=== PATIENT | female | born 1980 | race Caucasian/White ===

== ENCOUNTER 2018-02-17 11:16 | Emergency (ER) | payer MEDICAID, SELFPAY ==
[2018-02-17 11:17] VITALS: BP 125/82; PULSE 92; RESP 16; TEMP 36.4; O2SAT 100; BMI 38.0
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
== END 2018-02-17 12:43 | disposition home or self-care (01) ==
PROVIDERS: Emergency Provider Emergency Medicine
DX: S16.1XXA Strain of muscle, fascia and tendon at neck level, initial encounter (principal); Z72.0 Tobacco use; V43.62XA Car passenger injured in collision with other type car in traffic accident, initial encounter; Y93.I9 Activity, other involving external motion; Y92.410 Unspecified street and highway as the place of occurrence of the external cause; Y99.8 Other external cause status
CPT/HCPCS: 99282

== ENCOUNTER 2018-06-22 08:47 | Emergency (ER) | payer MEDICAID, SELFPAY ==
[2018-06-22 08:49] VITALS: BP 160/76; PULSE 65; RESP 14; TEMP 36.3; O2SAT 100; BMI 36.6
--- NOTE | 2018-06-22 09:04 | US_ITS ---
STUDY: ABDOMINAL ULTRASOUND - RIGHT UPPER QUADRANT REASON FOR VISIT: Female, 38 years old. Abdominal pain. TECHNIQUE: Ultrasound evaluation of the right upper quadrant was performed with real-time and static leo-scale imaging. TECHNICAL QUALITY: Adequate. COMPARISON: None. FINDINGS: Liver: The liver measures 17.0 cm. There is normal echogenicity of the liver. The bile ducts are within normal limits. There is hepatic color flow. The direction of portal flow is hepatopetal. There is no demonstrated mass lesion. Gallbladder: Normal distended gallbladder. The gallbladder wall measures 3.0 mm. There is a negative sonographic Khan's sign. There is no pericholecystic fluid. There are no gallstones. Common Bile Duct (C.B.D.): The common bile duct measures 3.0 mm. Pancreas: Normal size of the head, body and tail of the pancreas. There is normal echogenicity of the pancreas. There is no demonstrated pancreatic mass or cyst. Right Kidney: Normal size of the right kidney. The right kidney measures 10.7 cm x 4.9 cm x 4.5 cm. Normal renal cortex. The right cortex measures 1.0 cm. There is no demonstrated renal mass or cyst. There is no right hydronephrosis. US/Gallbladder IMPRESSION: Normal right upper quadrant ultrasound examination. Electronically Signed: Pop Mcknight MD at 9:55 EDT Tel [phone], Service support ,
--- NOTE | 2018-06-22 09:05 | ED.VISSUMM ---
- ER Visit Summary Date of Service: 06/22/18 Chief Complaint: Abdominal pain and headache History of Present Illness: The patient is a 38 F with no primary care physician. She reports that she has a headache that began on March 17. She reports that it is an intermittent pain. States that it began again at 2:00 this morning and is gradually gotten worse. It is a throbbing that is diffuse. It is 10 out of 10 in severity. She taken Excedrin without relief. She has been nauseated and vomited multiple times. No blood or emesis. She does complain of blurred vision. No recent injury to her head. Patient also reports that she has abdominal pain that began June 17. She reports that she was at another hospital and had blood work, CT, and urinalysis obtained. She was placed on Phenergan and Bentyl. She reports that is not controlling her pain today. States the abdominal pain is intermittent as well. It began again at 2:00 this morning. Is an aching epigastric and right upper quadrant pain. She reports that it is transient relieved by vomiting. However, it returns proximal 10 minutes later. Is 6 out of 10 severity now and 10 out of 10 at worst. She has had chills, but no fever. No diarrhea. No dysuria or frequency. She is status post hysterectomy. She does report a history of fatty food intolerance. However, she last ate approximately 9 hours prior to the onset of pain this morning. Physical Examination: Vitals: Stable. Afebrile. General: Well-nourished and well-developed. Head: Normocephalic atraumatic. Neck: Supple, no lymphadenopathy. No JVD. Nontender. Cardiovascular: Regular rate and rhythm. No murmurs. Respiratory: No respiratory distress. Clear to auscultation bilaterally. Abdominal: Soft, moderate epigastric and mild right upper quadrant tenderness to palpation, nondistended, normal bowel sounds. No guarding, rebound, or peritoneal signs. Back: Nontender. Extremities: Nontender, no edema. Skin: Normal color, no rash. Neurologic: Alert and oriented ?3. Cranial nerves II through XII are intact. Normal strength and sensation. Psych: Normal affect. Test Results: CBC is remarkable for a white count of 12.3 with segmented neutrophils of 90 and 8 lymphocytes of 8. Hemoglobin is 16.7. Chem-7 is more for glucose 127. LFTs marked for an AST of 11. Lipase is normal. Right upper quadrant ultrasound is normal. Common bile duct is 3.0 mm. Wall is 3.0 mm. No Khan sign. No pericholecystic fluid. No gallstones. We did obtain the workup that she had on the . At that point she had a CT the abdomen and pelvis that shows no acute disease, but she did have a left lower lobe nodule. UA was negative. Emergency Department Course and Treatment: Patient had an IV placed. She was given a liter normal saline. She was given Toradol, Benadryl, and Reglan IV. Treatment Plan: Patient will be discharged with Zofran. Instructed follow-up her primary care physician 1-2 days not improving. Return to the emergency department for any worsening symptoms. Disposition: To home in improved and stable condition. Impression: 1. Abdominal pain, uncertain cause. 2. Cephalgia. This note was generated with [email or web address] dictation software. It may contain incorrect words, spelling, and punctuation that were not noted in review of the chart prior to signing ED Disposition - Plan for ED Patient: Chief Complaint: Headache Instructions: ED Abdominal Pain Unkn Cause Prescriptions: Ondansetron [Zofran Odt] 4 mg PO Q8H PRN PRN #10 tablet PRN Reason: Nausea Referrals: Kaylie Boyd [NON-STAFF] - 1-2 Days if not improving
[2018-06-22] MEDS: Ketorolac 30 MG/ML Syringe IV (09:17)
[2018-06-22] MEDS: 0.9% Normal Saline 1,000 ML 1000 ML IV (09:17)
[2018-06-22] MEDS: DiphenhydrAMINE 50 MG/ML Syringe IV (09:17)
[2018-06-22] MEDS: Metoclopramide 10 MG/2 ML Vial IV (09:20)
[2018-06-22 09:24] LABS: Absolute Lymphocyte Count 0.95 X10^3/ul (0.83-4.51); Basophil# 0.02 X10^3/uL; Basophil% 0.2 % (0-1); Hematocrit 46.3 % (37-47); Hemoglobin 16.7 g/dl (12.0-15.0); Lymphocyte # 0.95 X10^3/ul (4.0); Lymphocyte % 7.8 % (19-41); Mean Corp Hgb Conc 36.1 g/gl (32-36); Mean Corpuscular Hgb 32.7 pg (27.0-32.0); Mean Corpuscular Volume 90.6 fL (81-99); Mean Platelet Vol. 10.7 fl (6.2-12.0); Monocyte# 0.24 X10^3/uL; Neutrophil # 10.98 X10^3/uL (2.7-7.7); Neutrophil % 89.5 % (47-70); Platelet Count 331 K/mm3 (150-450); RBC Distribution Width CV 13.2 % (11.6-14.6); Red Blood Count 5.11 M/mm3 (4.2-5.4); White Blood Count 12.3 K/mm3 (4.4-11.0)
[2018-06-22 09:27] LABS: POSITIVE COUNT NO; POSITIVE DIFFERENTIAL NO; POSITIVE MORPHOLOGY NO
[2018-06-22 09:38] LABS: AST(SGOT) 11 U/L (15-37); Alanine Aminotransfer ALT/SGPT 30 U/L (13-56); Albumin, Serum 3.9 g/dL (3.2-5.0); Alkaline Phosphatase 92 U/L (45-117); Anion Gap 10 (5-15); BUN 18 mg/dL (7-18); BUN/Creat Ratio 18.3 RATIO (10-20); Bilirubin, Direct 0.14 mg/dL (0.00-0.30); Chloride 100 mmol/L (98-107); Creatinine, Serum 0.98 mg/dL (0.55-1.02); EST Glomerular Filtration Rate 67 mL/min (>60); Est Glom Filt Rate - Afr Amer 81 mL/min (>60); Estimated Creatinine Clearance 65.89 ml/min; Glucose 127 mg/dL (74-106); Lipase 142 U/L (73-393); Potassium 3.5 mmol/L (3.5-5.1); Protein, Total 7.9 g/dL (6.4-8.2); Sodium Level 136 mmol/L (136-145)
[2018-06-22] MEDS: Morphine 4 MG/ML Syringe IV (10:56)
[2018-06-22 10:58] VITALS: BP 172/92; PULSE 60; RESP 14; O2SAT 100
== END 2018-06-22 11:09 | disposition home or self-care (01) ==
PROVIDERS: Emergency Provider Emergency Medicine
DX: R10.13 Epigastric pain (principal); R10.11 Right upper quadrant pain; R51 Headache; Z72.0 Tobacco use
CPT/HCPCS: 76705; 80048; 80076; 83690; 85025; 96361; 96374; 96375; 99283; J7030; A4216

== ENCOUNTER 2025-07-24 13:17 | Emergency (ER) | payer MEDICAID, SELFPAY ==
[2025-07-24 13:17] VITALS: BP 146/82; PULSE 101; RESP 16; TEMP 37.1; O2SAT 99; BMI 39.0
--- NOTE | 2025-07-24 13:34 | EX.ED.DYSGE1 ---
HPI History of Present Illness Chief Complaint: Rash Informant: patient Narrative Narrative: 45-year-old female presenting to the emergency room out of concern for tick bite. Patient states about 2 weeks ago she removed a tick from her anterior midline neck. She states that she believes she removed all the tick. She has noticed that she has developed generalized achiness fatigue and some neck discomfort particularly with swallowing and turning her head. She noted a large rash on her anterior neck today in the area where the tick was and was advised to come to emergency. PFSH PFS Home Medications Medication Instructions Recorded Last Taken Type Lipozene 1 tab PO DAILY 06/22/18 Unknown History ondansetron 4 mg disintegrating 4 mg PO Q8H PRN PRN Nausea #10 tabs 06/22/18 Unknown Rx tablet doxycycline monohydrate 100 mg 100 mg PO BID #20 CAPSULES 07/24/25 Unknown Rx capsule Allergy/AdvReac Type Severity Reaction Status Date / Time No Known Allergies Allergy Verified 07/24/25 13:18 Social History Smoking Status: Current every day smoker ROS ROS ED Constitutional Constitutional ED: Reports sweats; Denies chills, fever(s) or weight loss Eyes Eyes: Denies change in vision or diplopia ENT ENT ED: Denies ear pain, rhinorrhea or sore throat Cardiovascular Cardiovascular: Denies chest pain, orthopnea, palpitations or racing heartbeat Respiratory/Chest Respiratory/Chest: Denies cough, dyspnea or orthopnea Gastrointestinal Gastrointestinal: Denies abdominal pain, diarrhea, nausea or vomiting Genitourinary Genitourinary ED: Denies dysuria, hematuria or urinary frequency Musculoskeletal Musculoskeletal: Reports myalgias and neck pain; Denies arthralgias Integumentary Reports rash; Denies abscess Neurologic Neurologic: Denies headache(s), paresthesias or weakness Psychiatric Psychiatric: Denies anxiety, depression, suicidal ideation or suicidal thoughts Endocrine Endocrinology: Denies polydipsia, polyphagia or polyuria Allergic/Immunologic Allergic/Immunologic ED: Denies mouth swelling, tongue swelling or urticaria EXAM Physical Exam Const Vital Signs: 07/24/25 13:17 Temperature 98.8 F Temperature Source Oral Pulse Rate 101 H Respiratory Rate 16 Blood Pressure 146/82 H Blood Pressure Mean 103 Pulse Ox 99 Oxygen Delivery Method Room Air Positive well nourished and well developed General Appearance ED: well developed HEENT Reports normocephalic, head/scalp atraumatic and moist mucous membranes Eyes PERRL and EOMs intact bilaterally Neck no lymphadenopathy, supple and no JVD Neck Narrative: I would not characterize the neck was meningitic in nature. Resp normal respiratory effort and clear to auscultation bilaterally Cardio regular rate, regular rhythm and no murmurs GI normal to inspection, nondistended, normoactive bowel sounds and non-tender Palpation: soft Back/Spine no CVA tenderness and normal ROM Extremity normal to inspection General Extremety ED: Negative for edema General Extremity: Negative for edema Neuro oriented x3 and CN's II-XII intact bilaterally Sensorium / Orientation: alert Motor Exam: strength 5/5 throughout Psych mental status grossly normal Mood & Affect: Negative for depressed or tearful Skin no wounds Skin Narrative: There is a circular erythematous rash over the anterior neck measuring approximately 15 cm wide by 10 cm in length. It is not classic bull's-eye in appearance. I do not see any retained tick. MDM MDM MDM Narrative Medical decision making narrative: Differential diagnosis includes Lyme disease cellulitis other tickborne illnesses such as [place] spotted fever. Meningitis We will draw a Lyme screen and placed the patient on doxycycline. Asked that she follow-up with primary care return if worsening or concerns. Patient is comfortable with this plan History & Record Review Discussion w/independent historian: Patient Discharge Plan Triage Chief Complaint: Rash ED Provider: Jose Coates Dx/Rx/DC Orders Clinical Impression: Rash, Tick bite of neck Instructions: ED Tick Bite, Antibiotic Treatment Prescriptions: New doxycycline monohydrate 100 mg capsule 100 mg PO BID Qty: 20 0RF No Action Lipozene 1 tab PO DAILY ondansetron 4 MG tablet 4 mg PO Q8H PRN PRN (Reason: Nausea) Qty: 10 0RF Primary Care Provider: Care Physician,No Primary Referrals: Care Physician,No Primary [Primary Care Provider, Medical] Activity Restrictions/Additional Instructions: I would encourage you to follow-up with primary care in 1 week especially if there is continued symptoms. We have tested you for Lyme today and that test does not come back while you are here in the emergency department. This will most likely take several days to result. Please return if worsening or concerns Print Language: Qatari Disposition Disposition: Home, Self Care
--- OUTSIDE RECORDS SUMMARY | 2025-07-24 13:45 | XMS RPT_ITS | CCD ---
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 effect 20 Performed By: #### C BC, ADIFF, ANEU, A1C, BILAD, TSH, LIPID, CMP, GFR #### [place] [id number] Chloride [Moles/Vol] 110 mmol/L Normal 98-110 [facility] ([place]) Comment on above: Performed By: #### C BC, ADIFF, ANEU, A1C, BILAD, TSH, LIPID, CMP, GFR #### [place] [id number] CO2 [Moles/Vol] 25 mmol/L Normal 22-32 [facility] ([place]) Comment on above: Performed By: #### C BC, ADIFF, ANEU, A1C, BILAD, TSH, LIPID, CMP, GFR #### [place] [address] Creatinine [Mass/Vol] 0.60 mg/dL Normal 0.50-1.20 [facility] ([place]) Comment on above: Performed By: #### C BC, ADIFF, ANEU, A1C, BILAD, TSH, LIPID, CMP, GFR #### [place] [address] Electrolyte Balance 6.0 mEq/L Normal 4.0-15.0 [facility] ([place]) Comment on above: Performed By: #### C BC, ADIFF, ANEU, A1C, BILAD, TSH, LIPID, CMP, GFR #### [place] [id number] Globulin 3.1 G/dL Normal 1.5-3.8 [facility] ([place]) Comment on above: Performed By: #### C BC, ADIFF, ANEU, A1C, BILAD, TSH, LIPID, CMP, GFR #### [place] [address] Glucose [Mass/Vol] 89 mg/dL Normal 70-110 [facility] [place] Comment on above: Performed By: #### C BC, ADIFF, ANEU, A1C, BILAD, TSH, LIPID, CMP, GFR #### [address] [address] Potassium [Moles/Vol] 4.2 mmol/L Normal 3.5-5.0 [facility] ([place]) Comment on above: Performed By: #### C BC, ADIFF, ANEU, A1C, BILAD, TSH, LIPID, CMP, GFR #### [address] [address] Sodium [Moles/Vol] 141 mmol/L Normal 136-145 [facility] [place] Comment on above: Performed By: #### C BC, ADIFF, ANEU, A1C, BILAD, TSH, LIPID, CMP, GFR #### [address] [address] Total Protein 6.7 G/dL Normal 5.7-8.2 [facility] ([place]) Comment on above: Result Comment: No te - New Reference Range in effect 20 Performed By: #### C BC, ADIFF, ANEU, A1C, BILAD, TSH, LIPID, CMP, GFR #### [address] [address] Urea nitrogen [Mass/Vol] 16.0 mg/dL Normal 8.0-22.0 [facility] ([place]) Comment on above: Performed By: #### C BC, ADIFF, ANEU, A1C, BILAD, TSH, LIPID, CMP, GFR #### [address] [address] LIPIDon 02-07-2021 Cholesterol [Mass/Vol] 194 mg/dL Normal 50-199 [facility] ([place]) Comment on above: Result Comment: Chol esterol Reference Interval: Less than 200 Desirable 200-239 Borderline high risk 240 and above High risk Performed By: #### C BC, ADIFF, ANEU, A1C, BILAD, TSH, LIPID, CMP, GFR #### [address] [address] Cholesterol in HDL [Mass/Vol] 60 mg/dL High 40-59 [facility] ([place]) Comment on above: Performed By: #### C BC, ADIFF, ANEU, A1C, BILAD, TSH, LIPID, CMP, GFR #### [address] [address] Cholesterol in LDL [Mass/Vol] 99 mg/dL Normal 0-129 [facility] ([place]) Comment on above: Performed By: #### C BC, ADIFF, ANEU, A1C, BILAD, TSH, LIPID, CMP, GFR #### [place] [address] Triglyceride [Mass/Vol] 175 mg/dL High 3-149 [facility] ([place]) Comment on above: Performed By: #### C BC, ADIFF, ANEU, A1C, BILAD, TSH, LIPID, CMP, GFR #### [place] [address] TSHon 02-07-2021 TSH 5.529 mIU/mL High 0.550-4.780 [facility] ([place]) Comment on above: Result Comment: No te - New Reference Range in effect 20 Performed By: #### C BC, ADIFF, ANEU, A1C, BILAD, TSH, LIPID, CMP, GFR #### [address] [address] .GFRon 05-13-2020 GFR >60 Normal [facility] ([place]) Comment on above: Result Comment: GFR Population mean for , Non- Americans Ages 20-29 = 116 mL/min/1.73 sq.m. Ages 30-39 = 107 mL/min/1.73 sq.m. Ages 40-49 = 99 mL/min/1.73 sq.m. Ages 50-59 = 93 mL/min/1.73 sq.m. Ages 60-69 = 85 mL/min/1.73 sq.m. Ages 70+ = 75 mL/min/1.73 sq.m. Chronic Kidney Disease: Less than 60 mL/min/1.73 square meters End Stage Renal Disease: Less than 15 mL/min/1.73 square meters Performed By: #### C BC, ADIFF, ANEU, A1C, BILAD, TSH, LIPID, CMP, GFR #### [address] [address] GFR Non- >60 Normal [facility] ([place]) Comment on above: Result Comment: GFR Population mean for , Non- Americans Ages 20-29 = 116 mL/min/1.73 sq.m. Ages 30-39 = 107 mL/min/1.73 sq.m. Ages 40-49 = 99 mL/min/1.73 sq.m. Ages 50-59 = 93 mL/min/1.73 sq.m. Ages 60-69 = 85 mL/min/1.73 sq.m. Ages 70+ = 75 mL/min/1.73 sq.m. Chronic Kidney Disease: Less than 60 mL/min/1.73 square meters End Stage Renal Disease: Less than 15 mL/min/1.73 square meters Performed By: #### C BC, ADIFF, ANEU, A1C, BILAD, TSH, LIPID, CMP, GFR #### [address] [address] A1Con 05-13-2020 HbA1c (Bld) [Mass fraction] 4.9 % Normal 4.0-6.0 [facility] ([place]) Comment on above: Order Comment: pasquale ind Performed By: #### C BC, ADIFF, ANEU, A1C, BILAD, TSH, LIPID, CMP, GFR #### [address] [address] BILADon 05-13-2020 Bili Direct 0.1 mg/dL Normal 0.0-0.4 [facility] ([place]) Comment on above: Order Comment: pasquale ind Result Comment: Use of this assay is not recommended for patients undergoing treatment with eltrombopag due to the potential for falsely elevated results. Performed By: #### C BC, ADIFF, ANEU, A1C, BILAD, TSH, LIPID, CMP, GFR #### [address] [address] CMPon 05-13-2020 BUN/Creatinine Ratio 23.9 ratio High 10.0-22.0 [facility] ([place]) Comment on above: Order Comment: pasquale ind Performed By: #### C BC, ADIFF, ANEU, A1C, BILAD, TSH, LIPID, CMP, GFR #### [address] [address] Creatinine [Mass/Vol] 0.67 mg/dL Normal 0.50-1.20 [facility] ([place]) Comment on above: Order Comment: pasquale ind Performed By: #### C BC, ADIFF, ANEU, A1C, BILAD, TSH, LIPID, CMP, GFR #### [address] [address] Albumin Level 3.8 G/dL Normal 3.2-4.8 [facility] ([place]) Comment on above: Order Comment: pasquale ind Performed By: #### C BC, ADIFF, ANEU, A1C, BILAD, TSH, LIPID, CMP, GFR #### [address] [address] Albumin/Globulin [Mass ratio] 1.3 {ratio} Normal 0.9-1.6 [facility] ([place]) Comment on above: Order Comment: pasquale ind Performed By: #### C BC, ADIFF, ANEU, A1C, BILAD, TSH, LIPID, CMP, GFR #### [address] [address] ALP [Catalytic activity/Vol] 101 U/L Normal 38-126 [facility] ([place]) Comment on above: Order Comment: pasquale ind Performed By: #### C BC, ADIFF, ANEU, A1C, BILAD, TSH, LIPID, CMP, GFR #### [address] [address] ALT [Catalytic activity/Vol] 18 U/L Normal 10-49 [facility] ([place]) Comment on above: Order Comment: pasquale ind Performed By: #### C BC, ADIFF, ANEU, A1C, BILAD, TSH, LIPID, CMP, GFR #### [address] [address] AST [Catalytic activity/Vol] 19 U/L Normal 8-34 [facility] ([place]) Comment on above: Order Comment: pasquale ind Performed By: #### C BC, ADIFF, ANEU, A1C, BILAD, TSH, LIPID, CMP, GFR #### [address] [address] Bili Total 0.30 mg/dL Normal 0.20-1.20 [facility] ([place]) Comment on above: Order Comment: pasqu[place] ind Result Comment: Use of this assay is not recommended for patients undergoing treatment with eltrombopag due to the potential for falsely elevated results. Performed By: #### C BC, ADIFF, ANEU, A1C, BILAD, TSH, LIPID, CMP, GFR #### [address] [address] Calcium [Mass/Vol] 8.8 mg/dL Normal 8.7-10.4 [facility] [place]) Comment on above: Order Comment: pasquale ind Result Comment: No te - New Reference Range in effect 20 Performed By: #### C BC, ADIFF, ANEU, A1C, BILAD, TSH, LIPID, CMP, GFR #### [place] [id number] Chloride [Moles/Vol] 106 mmol/L Normal 98-110 [facility] ([place]) Comment on above: Order Comment: pasquale ind Performed By: #### C BC, ADIFF, ANEU, A1C, BILAD, TSH, LIPID, CMP, GFR #### [address] [address] CO2 [Moles/Vol] 24 mmol/L Normal 22-32 [facility] ([place]) Comment on above: Order Comment: pasquale ind Performed By: #### C BC, ADIFF, ANEU, A1C, BILAD, TSH, LIPID, CMP, GFR #### [address] [address] Electrolyte Balance 6.0 mEq/L Normal 4.0-15.0 [facility] ([place]) Comment on above: Order Comment: pasquale ind Performed By: #### C BC, ADIFF, ANEU, A1C, BILAD, TSH, LIPID, CMP, GFR #### [address] [address] Globulin 2.9 G/dL Normal 1.5-3.8 [facility] ([place]) Comment on above: Order Comment: pasquale ind Performed By: #### C BC, ADIFF, ANEU, A1C, BILAD, TSH, LIPID, CMP, GFR #### [address] [address] Glucose [Mass/Vol] 82 mg/dL Normal 70-110 [facility] [place] Comment on above: Order Comment: pasquale ind Performed By: #### C BC, ADIFF, ANEU, A1C, BILAD, TSH, LIPID, CMP, GFR #### [address] [address] Potassium [Moles/Vol] 4.3 mmol/L Normal 3.5-5.0 [facility] ([place]) Comment on above: Order Comment: pasquale ind Performed By: #### C BC, ADIFF, ANEU, A1C, BILAD, TSH, LIPID, CMP, GFR #### [address] [address] Sodium [Moles/Vol] 136 mmol/L Normal 136-145 [facility] [place] Comment on above: Order Comment: pasquale ind Performed By: #### C BC, ADIFF, ANEU, A1C, BILAD, TSH, LIPID, CMP, GFR #### [address] [address] Total Protein 6.7 G/dL Normal 5.7-8.2 [facility] ([place]) Comment on above: Order Comment: pasquale ind Result Comment: No te - New Reference Range in effect 20 Performed By: #### C BC, ADIFF, ANEU, A1C, BILAD, TSH, LIPID, CMP, GFR #### [address] [address] Urea nitrogen [Mass/Vol] 16.0 mg/dL Normal 8.0-22.0 [facility] ([place]) Comment on above: Order Comment: pasquale ind Performed By: #### C BC, ADIFF, ANEU, A1C, BILAD, TSH, LIPID, CMP, GFR #### [address] [address] LIPIDon 05-13-2020 Cholesterol [Mass/Vol] 208 mg/dL High 50-199 [facility] ([place]) Comment on above: Order Comment: pasquale ind Result Comment: Chol esterol Reference Interval: Less than 200 Desirable 200-239 Borderline high risk 240 and above High risk Performed By: #### C BC, ADIFF, ANEU, A1C, BILAD, TSH, LIPID, CMP, GFR #### [address] [address] Cholesterol in HDL [Mass/Vol] 61 mg/dL High 40-59 [facility] ([place]) Comment on above: Order Comment: pasquale ind Performed By: #### C BC, ADIFF, ANEU, A1C, BILAD, TSH, LIPID, CMP, GFR #### [address] [address] Cholesterol in LDL [Mass/Vol] 116 mg/dL Normal 0-129 [facility] ([place]) Comment on above: Order Comment: pasquale ind Performed By: #### C BC, ADIFF, ANEU, A1C, BILAD, TSH, LIPID, CMP, GFR #### [place] [address] Triglyceride [Mass/Vol] 156 mg/dL High 3-149 [facility] ([place]) Comment on above: Order Comment: pasquale ind Performed By: #### C BC, ADIFF, ANEU, A1C, BILAD, TSH, LIPID, CMP, GFR #### [address] [address] TSHon 05-13-2020 TSH 4.317 mIU/mL Normal 0.550-4.780 [facility] ([place]) Comment on above: Order Comment: pasquale ind Result Comment: No te - New Reference Range in effect 20 Performed By: #### C BC, ADIFF, ANEU, A1C, BILAD, TSH, LIPID, CMP, GFR #### [address] [address] .Auto Diffon 05-12-2020 Basophil, Absolute 0.10 10 3/mcL Normal 0.00-0.27 [facility] ([place]) Comment on above: Performed By: #### C BC, ADIFF, ANEU, A1C, BILAD, TSH, LIPID, CMP, GFR #### [address] [address] Basophils/100 WBC (Bld) 0.9 % Normal 0.0-2.5 [facility] ([place]) Comment on above: Performed By: #### C BC, ADIFF, ANEU, A1C, BILAD, TSH, LIPID, CMP, GFR #### [address] [address] Eosinophil, Absolute 0.20 10 3/mcL Normal 0.00-0.65 [facility] ([place]) Comment on above: Performed By: #### C BC, ADIFF, ANEU, A1C, BILAD, TSH, LIPID, CMP, GFR #### [address] [address] Eosinophils/100 WBC (Bld) 1.9 % Normal 0.0-6.0 [facility] ([place]) Comment on above: Performed By: #### C BC, ADIFF, ANEU, A1C, BILAD, TSH, LIPID, CMP, GFR #### [address] [address] Lymphocyte, Absolute 2.40 10 3/mcL Normal 0.90-4.32 [facility] ([place]) Comment on above: Performed By: #### C BC, ADIFF, ANEU, A1C, BILAD, TSH, LIPID, CMP, GFR #### [address] [address] Lymphocytes/100 WBC (Bld) 26.2 % Normal 20.0-40.0 [facility] ([place]) Comment on above: Performed By: #### C BC, ADIFF, ANEU, A1C, BILAD, TSH, LIPID, CMP, GFR #### [address] [address] Monocyte, Absolute 0.60 10 3/mcL Normal 0.09-1.40 [facility] ([place]) Comment on above: Performed By: #### C BC, ADIFF, ANEU, A1C, BILAD, TSH, LIPID, CMP, GFR #### [address] [address] Monocytes/100 WBC (Bld) 6.3 % Normal 2.0-13.0 [facility] ([place]) Comment on above: Performed By: #### C BC, ADIFF, ANEU, A1C, BILAD, TSH, LIPID, CMP, GFR #### [address] [address] Neutrophils/100 WBC (Bld) 64.7 % Normal 50.0-75.0 [facility] ([place]) Comment on above: Performed By: #### C BC, ADIFF, ANEU, A1C, BILAD, TSH, LIPID, CMP, GFR #### [address] [address] .NEUABSon 05-12-2020 Neutrophil, Absolute 5.90 10 3/mcL Normal 2.25-8.10 [facility] ([place]) Comment on above: Performed By: #### C BC, ADIFF, ANEU, A1C, BILAD, TSH, LIPID, CMP, GFR #### [address] [address] CBCon 05-12-2020 Erythrocyte distribution width (RBC) [Ratio] 13.5 % Normal 11.5-15.5 [facility] ([place]) Comment on above: Order Comment: pasquale ind Performed By: #### C BC, ADIFF, ANEU, A1C, BILAD, TSH, LIPID, CMP, GFR #### [address] [address] Hematocrit (Bld) [Volume fraction] 44.8 % Normal 34.0-46.0 [facility] ([place]) Comment on above: Order Comment: pasquale ind Performed By: #### C BC, ADIFF, ANEU, A1C, BILAD, TSH, LIPID, CMP, GFR #### [address] [address] Hgb 15.6 G/dL Normal 12.0-16.0 [facility] ([place]) Comment on above: Order Comment: pasquale ind Performed By: #### C BC, ADIFF, ANEU, A1C, BILAD, TSH, LIPID, CMP, GFR #### [address] [address] MCH (RBC) [Entitic mass] 34.9 pg High 27.0-33.0 [facility] ([place]) Comment on above: Order Comment: pasquale ind Performed By: #### C BC, ADIFF, ANEU, A1C, BILAD, TSH, LIPID, CMP, GFR #### [address] [address] MCHC 34.9 G/dL Normal 32.0-36.0 [facility] ([place]) Comment on above: Order Comment: pasquale ind Performed By: #### C BC, ADIFF, ANEU, A1C, BILAD, TSH, LIPID, CMP, GFR #### [place] [address] MCV (RBC) [Entitic vol] 100.0 fL High 80.0-99.0 [facility] ([place]) Comment on above: Order Comment: pasquale ind Performed By: #### C BC, ADIFF, ANEU, A1C, BILAD, TSH, LIPID, CMP, GFR #### [place] [address] Platelet 270 10 3/mcL Normal 150-450 [facility] ([place]) Comment on above: Order Comment: pasquale ind Performed By: #### C BC, ADIFF, ANEU, A1C, BILAD, TSH, LIPID, CMP, GFR #### [place] [address] Platelet mean volume (Bld) [Entitic vol] 9.2 fL Normal 6.6-10.5 [facility] ([place]) Comment on above: Order Comment: pasquale ind Performed By: #### C BC, ADIFF, ANEU, A1C, BILAD, TSH, LIPID, CMP, GFR #### [place] [address] RBC 4.48 10 6/mcL Normal 4.10-5.30 [facility] ([place]) Comment on above: Order Comment: pasquale ind Performed By: #### C BC, ADIFF, ANEU, A1C, BILAD, TSH, LIPID, CMP, GFR #### [place] [address] WBC 9.10 10 3/mcL Normal 4.50-10.80 [facility] ([place]) Comment on above: Order Comment: pasquale ind Performed By: #### C BC, ADIFF, ANEU, A1C, BILAD, TSH, LIPID, CMP, GFR #### [place] [id number] [address] [place] [address] Basic Metabolic Profile (BMP )on 06-22-2018 Calcium mass conc 9.0 mg/dL Normal 8.5-10.1 [facility] Comment on above: Performed By: #### B 101.9075 ####[facility] [address] [place], [address] Chloride molar conc 100 mmol/L Normal 98-107 [facility] Comment on above: Performed By: #### B 101.7475 ####[facility] [address] [place], [address] CO2 molar conc 26.0 mmol/L Normal 21.0-32.0 [facility] Comment on above: Performed By: #### B 101.7475 ####[facility] [address] [place], [address] Creatinine mass conc 0.98 mg/dL Normal 0.55-1.02 [facility] Comment on above: Result Comment: The validity of the calculated GFR AND GFRAA in patients over70 years has not been determined. Clinical correlation isessential. Performed By: #### B 101.7475 ####[facility] [address] [place], [address] EST GFR - AA 81 mL/min Normal >60 [facility] Comment on above: Result Comment: Afri can Pakistani GFR Calc Performed By: #### B 101.9575 ####[facility] [address] [place], [address] Estimated CRCL 65.89 ml/min Normal [facility] Comment on above: Performed By: #### B 101.3475 ####[facility] [address] [place], [address] GAP 10 Normal 5-15 [facility] Comment on above: Performed By: #### B 101.7475 ####[facility] [address] [place], [address] GFR/1.73 sq M predicted among non-blacks MDRD vol rate/area (S/P/Bld) 67 mL/min/{1.73_m2} Normal >60 [facility] Comment on above: Result Comment: Non- GFR Calc Performed By: #### B 101.7475 ####[facility] [address] [place], [address] Glucose mass conc 127 mg/dL High 74-106 [facility] Comment on above: Result Comment: Fast ing Glucose result greater than or equal to 126 mg/dLsuggests DIABETES MELLITUS per A.D.A. criteria.Please note revised GLUCOSE reference range [id number]/[id number]/2018. Performed By: #### B 101.7475 ####[facility] [address] [place], [address] Potassium molar conc 3.5 mmol/L Normal 3.5-5.1 [facility] Comment on above: Performed By: #### B 101.7475 ####[facility] [address] [place], [address] Sodium molar conc 136 mmol/L Normal 136-145 [facility] Comment on above: Performed By: #### B 101.7475 ####[facility] [address] [place], [address] Urea nitrogen mass conc 18 mg/dL Normal 7-18 [facility] Comment on above: Performed By: #### B 101.7475 ####[facility] [address] [place], [address] Urea nitrogen mass conc (Bld) 18.3 RATIO Normal 10-20 [facility] Comment on above: Performed By: #### B 101.7475 ####[facility] [address] [place], [address] CBC W/Diff, Automatedon 09-2 Absolute Neut 11.0 X10 3/uL High 2.0-7.7 [facility] Comment on above: Performed By: #### B 101.8675 ####[facility] [address] [place], [address] Basophils/100 WBC Auto (Bld) 0.2 % Normal 0-1 [facility] Comment on above: Performed By: #### B 101.7475 ####[facility] [address] [place], [address] Eosinophils/100 WBC Auto (Bld) 0.0 % Normal 0-5 [facility] Comment on above: Performed By: #### B 101.7475 ####[facility] [address] [place], [address] Erythrocyte distribution width Auto Ratio (RBC) 13.2 % Normal 11.6-14.6 [facility] Comment on above: Performed By: #### B 101.7475 ####[facility] [address] [place], [address] Hematocrit Auto Volume Fraction (Bld) 46.3 % Normal 37-47 [facility] Comment on above: Performed By: #### B 101.7475 ####[facility] [address] [place], [address] Hemoglobin mass conc (Bld) 16.7 g/dL High 12.0-15.0 [facility] Comment on above: Performed By: #### B 101.7475 ####[facility] [address] [place], [address] IM GRAN % 0.500 % Normal 0.0-0.9 [facility] Comment on above: Result Comment: IG% - Immature Granulocytes (promyelocytes, myelocytes andmetamyelocytes) > 1% indicates that a LEFT SHIFT is Present. Performed By: #### B 101.7475 ####[facility] [address] [place], [address] Lymphocytes Auto #/vol (Bld) 0.95 X10 3/ul Normal 0.83-4.51 [facility] Comment on above: Performed By: #### B 101.7475 ####[facility] [address] [place], [address] Lymphocytes/100 WBC Auto (Bld) 7.8 % Low 19-41 [facility] Comment on above: Performed By: #### B 101.7475 ####[facility] [address] [place], [address] MCH Auto Entitic mass (RBC) 32.7 pg High 27.0-32.0 [facility] Comment on above: Performed By: #### B 101.7475 ####[facility] [address] [place], [address] MCHC Auto mass conc (RBC) 36.1 g/gl High 32-36 [facility] Comment on above: Performed By: #### B 101.7475 ####[facility] [address] [place], [address] MCV Auto Entitic volume (RBC) 90.6 fL Normal 81-99 [facility] Comment on above: Performed By: #### B 101.7475 ####[facility] [address] [place], [address] Monocytes/100 WBC Auto (Bld) 2.0 % Normal 0-10 [facility] Comment on above: Performed By: #### B 101.7475 ####[facility] [address] [place], [address] Neutrophils/100 WBC Auto (Bld) 89.5 % High 47-70 [facility] Comment on above: Performed By: #### B 101.1375 ####[facility] [address] [place], [address] Platelet mean volume Auto Entitic volume (Bld) 10.7 fL Normal 6.2-12.0 [facility] Comment on above: Performed By: #### B 101.7475 ####[facility] [address] [place], [address] Platelets Auto #/vol (Bld) 331 10*3/uL Normal 150-450 [facility] Comment on above: Performed By: #### B 101.7475 ####[facility] [address] [place], [address] RBC Auto #/vol (Bld) 5.11 M/mm3 Normal 4.2-5.4 [facility] Comment on above: Performed By: #### B 101.7475 ####[facility] [address] [place], [address] RDW SD 43.0 fl Normal 35.1-43.9 [facility] Comment on above: Performed By: #### B 101.7475 ####[facility] [address] [place], [address] WBC Auto #/vol (Bld) 12.3 10*3/uL High 4.4-11.0 [facility] Comment on above: Performed By: #### B 101.7475 ####[facility] [address] [place], [address] Emergency Department Summary on 06-22-2018 Emergency Department [facility] [address] [place] [address]Ajhnjicfd Department Myrxxwu80/24/18 0905MR#: [id number] Acct: [id number]: PASQUALE FARIAS Rep #: [id number]: 1980 38 From: Jared Herring MDPCP: Care Physician, No Primary Status: DEP ER- ER Visit SummaryDate of Service: 06/22/18Chief Complaint: Abdominal pain and headacheHistory of Present Illness: The patient is a 38 F with no primary care physician. She reportsthat she has a headache that began on March 17. She reports that it is an intermittent pain.States that it began again at 2:00 this morning and is gradually gotten worse. It is athrobbing that is diffuse. It is 10 out of 10 in severity. She taken Excedrin without relief.She has been nauseated and vomited multiple times. No blood or emesis. She does complain ofblurred vision. No recent injury to her head.Patient also reports that she has abdominal pain that began June 17. She reports that shewas at another hospital and had blood work, CT, and urinalysis obtained. She was placed onPhenergan and Bentyl. She reports that is not controlling her pain today. States theabdominal pain is intermittent as well. It began again at 2:00 this morning. Is an achingepigastric and right upper quadrant pain. She reports that it is transient relieved byvomiting. However, it returns proximal 10 minutes later. Is 6 out of 10 severity now and 10out of 10 at worst. She has had chills, but no fever. No diarrhea. No dysuria or frequency.She is status post hysterectomy. She does report a history of fatty food intolerance.However, she last ate approximately 9 hours prior to the onset of pain this morning.Physical Examination:Vitals: Stable. Afebrile.General: Well-nourished and well-developed.Head: Normocephalic atraumatic.Neck: Supple, no lymphadenopathy. No JVD. Nontender.Cardiovascular: Regular rate and rhythm. No murmurs.Respiratory: No respiratory distress. Clear to auscultation bilaterally.Abdominal: Soft, moderate epigastric and mild right upper quadrant tenderness to palpation,nondistended, normal bowel sounds. No guarding, rebound, or peritoneal signs.Back: Nontender.Extremities: Nontender, no edema.Skin: Normal color, no rash.Neurologic: Alert and oriented 3. Cranial nerves II through XII are intact. Normal strengthand sensation.Psych: Normal affect.Test Results: CBC is remarkable for a white count of 12.3 with segmented neutrophils of 90 and8 lymphocytes of 8. Hemoglobin is 16.7. Chem-7 is more for glucose 127. LFTs marked for anAST of 11. Lipase is normal. Right upper quadrant ultrasound is normal. Common bile duct is3.0 mm. Wall is 3.0 mm. No Khan sign. No pericholecystic fluid. No gallstones. We didobtain the workup that she had on the . At that point she had a CT the abdomen and pelvisthat shows no acute disease, but she did have a left lower lobe nodule. UA was negative.Emergency Department Course and Treatment: Patient had an IV placed. She was given a liternormal saline. She was given Toradol, Benadryl, and Reglan IV.Treatment Plan: Patient will be discharged with Zofran. Instructed follow-up her primary carephysician 1-2 days not improving. Return to the emergency department for any worseningsymptoms.Disposit ion: To home in improved and stable condition.Impression: 1. Abdominal pain, uncertain cause.2. Cephalgia.This note was generated with Snackr dictation software. It may contain incorrect words,spelling, and punctuation that were not noted in review of the chart prior to signingED Disposition- Plan for ED Patient:Chief Complaint: HeadacheInstructions: ED Abdominal Pain Unkn CausePrescriptions:Ondanse joey [Zofran Odt] 4 mg PO Q8H PRN PRN #10 tabletPRN Reason: NauseaReferrals:Kaylie Boyd [NON-STAFF] - 1-2 Days if not improvingWhat to do if you have ProblemsFor any increased pain, shortness of breath, bleeding, nausea or vomiting, chest pain, or anyunexpected problems, contact your Primary Care Provider. Call [facility] ([phone])or report to the closest Emergency Room.Call 911 if necessary.06/22/18 1726 Date Jared Herring MDCosigner Signature (If Indicated): Date CC: No Primary Care Physician Normal [facility] Gallbladderon 06-22-2018 Gallbladder [facility] [id number] [address]UemfjqqfdtbEV#: [id number] Acct: [id number]: PASQUALE FARIAS Rep #: [id number]: 1980 F 38 From: Pop Mcknight MDPCP: Care Physician, No Primary Status: REG ERStudy: Gallbladder Date of Exam: 06/22/18Exam# [id number] Ordering Dr: Jared Herring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 to eat healthy Exercise: Active daily Hypothyroidism. Notes she is not taking levothyroxine due to feeling weird when she took it for 1 month. TSH (uU/mL) Date Value 07/25/2021 1.990 02/21/2021 5.880 ) Hyperlipidemia. Doing well on current therapy Her most recent lipid panels are: Cholesterol, Total (mg/dL) Date Value 01/29/2019 219 10/15/2016 209 HDL Cholesterol (mg/dL) Date Value 01/29/2019 41 10/15/2016 41 LDL Cholesterol (mg/dL) Date Value 01/29/2019 161 10/15/2016 138 Triglyceride (mg/dL) Date Value 01/29/2019 84 10/15/2016 150 Review of Systems Constitutional: Negative. Objective BP 124/78 Pulse 88 Resp 16 Ht 161.3 cm (5' 3.5") Wt 94.8 kg (209 lb) LMP 12/09/2016 SpO2 98% BMI 36.44 kg/m Physical Exam Vitals and nursing note reviewed. Constitutional: Appearance: Normal appearance. HENT: Head: Normocephalic and atraumatic. Eyes: Conjunctiva/sclera: Conjunctivae normal. Neck: Thyroid: No thyromegaly. Vascular: Normal carotid pulses. No JVD. Cardiovascular: Rate and Rhythm: Normal rate and regular rhythm. Pulses: Carotid pulses are 2+ on the right side and 2+ on the left side. Radial pulses are 2+ on the right side and 2+ on the left side. Heart sounds: Normal heart sounds. Abdominal: General: Bowel sounds are normal. Palpations: Abdomen is soft. Musculoskeletal: Right lower leg: No edema. Left lower leg: No edema. Skin: General: Skin is warm and dry. Neurological: General: No focal deficit present. Mental Status: She is alert and oriented to person, place, and time. ALLERGIES No Known Allergies varenicline (CHANTIX) 1 mg tablet Take 1/2 tablet (0.5 mg) by mouth once daily for 3 days, then 1/2 tablet (0.5 mg) twice daily for 4 days, then one tablet (1 mg) twice daily. levothyroxine (SYNTHROID) 25 mcg tablet Take 1 tablet by mouth once daily. Take on empty stomach. For thyroid. PAST MEDICAL HISTORY Diagnosis Date Hyperlipidemia Tobacco use Social History Tobacco Use Smoking status: Every Day Packs/day: 1.00 Years: 23.00 Pack years: 23.00 Types: Cigarettes Start date: 02/27/2015 Smokeless tobacco: Never Substance Use Topics Alcohol use: No Drug use: No Component Latest Ref Rng & Units 01/29/2019 02/21/2021 07/25/2021 Protein, Total 6.3 - 8.0 g/dL 7.0 Albumin 3.9 - 4.9 g/dL 3.8 (L) Calcium 8.5 - 10.2 mg/dL 8.8 Bilirubin, Total 0.2 - 1.3 mg/dL 0.4 Alkaline Phosphatase 34 - 123 U/L 85 AST 13 - 35 U/L 15 Glucose 74 - 99 mg/dL 89 BUN 7 - 21 mg/dL 11 Creatinine 0.58 - 0.96 mg/dL 0.76 Sodium 136 - 144 mmol/L 138 Potassium 3.7 - 5.1 mmol/L 4.7 Chloride 97 - 105 mmol/L 103 CO2 22 - 30 mmol/L 25 Anion Gap 9 - 18 mmol/L 10 ALT 7 - 38 U/L 11 eGFR- >60 eGFR-All Other Races . >60 WBC 3.70 - 11.00 k/uL 8.69 RBC 3.90 - 5.20 m/uL 4.58 Hemoglobin 11.5 - 15.5 g/dL 14.7 Hematocrit 36.0 - 46.0 % 44.3 MCV 80.0 - 100.0 fL 96.7 MCH 26.0 - 34.0 pG 32.1 MCHC 30.5 - 36.0 g/dL 33.2 RDW-CV 11.5 - 15.0 % 12.8 Platelet Count 150 - 400 k/uL 271 MPV 9.0 - 12.7 fL 11.3 Absolute nRBC <0.01 k/uL <0.01 Cholesterol, Total <200 mg/dL 219 (H) Triglyceride <150 mg/dL 84 HDL Cholesterol >39 mg/dL 41 LDL Cholesterol <100 mg/dL 161 (H) Non HDL Cholesterol <130 mg/dL 178 (H) Fasting Time hrs 14 VLDL Cholesterol <30 mg/dL 17 TC:HDL Ratio <5.10 5.34 (H) LDL:HDL Ratio <2.54 3.93 (H) TSH 0.270 - 4.200 uU/mL 5.880 (H) 1.990 Free T4 0.9 - 1.7 ng/dL 1.1 1.1 T3 79 - 165 ng/dL 116 Free T3 2.3 - 4.1 pg/mL 2.3 Microsomal Antibody <5.6 IU/mL 2.2 ASSESSMENT/PLAN: 1. Subclinical hypothyroidism - ICD9: 244.8, ICD10: E03.8 (primary diagnosis) Did not feel well with taking levothyroxine. Dr. Mark - COMP METABOLIC PANEL - TSH BLD 2. Encounter for immunization - ICD9: V03.89, ICD10: Z23 Declined HIV testing - HEPLISAV B (HEPATITIS B, ADJUVANT, ADULT) 3. Special screening examination for viral disease - ICD9: V73.99, ICD10: Z11.59 deferred, thinks she may have had this in the past - HEP C AB IA W/CONF SCRN 4. Screening for HIV (human immunodeficiency virus) - ICD9: V73.89, ICD10: Z11.4 declined 5. Screening for cervical cancer - ICD9: V76.2, ICD10: Z12.4 due to visit, HPV and Pap testing 6. H/O tobacco use, presenting hazards to health - ICD9: V15.82, ICD10: Z87.891 Trying to quit, intermittent use currently 7. Hyperlipidemia, unspecified hyperlipidemia type - ICD9: 272.4, ICD10: E78.5 Recommend a plant based diet such as Mediterranean diet with plenty of vegetables, fruits,whole grains, fish, chicken, turkey or plant proteins and routine exercise such as walking - COMP METABOLIC PANEL - TSH BLD - LIPID PANEL, NONFASTING 8. Insomnia, unspecified type - ICD9: 780.52, ICD10: G47.00 - COMP METABOLIC PANEL - TSH BLD 9. BMI 36.0-36.9,adult - ICD9: V85.36, ICD10: Z68.36 Weight is decreased, endorse continued portion control and routine exercise 10. Routine medical exam - ICD9: V70.0, ICD10: Z00.00 11. Well woman exam with routine gynecological exam - ICD9: V72.31, ICD10: Z01.419 - CONSULT TO GAS LINE SERVICER labs today 1 yr follow up Form signed and returned. . Thelma Walters APRN.DIRECTOR AUDIENCE MARKETING Medical Decision Making: Problems: Moderate: 2+ stable chronic illnesses Data: Unique test(s) ordered: 3+ Risk: Moderate: Drug management Medical Decision Making Level: 4 - Moderate documented in this encounter [facility] Evaluation note Diagnosis Encounter for screening mammogram for breast cancer [facility] Diagnosis Subclinical hypothyroidism- Primary Other specified acquired hypothyroidism Encounter for immunization Need for other specified prophylactic vaccination against single bacterial disease Special screening examination for viral disease Special screening examination for unspecified viral disease Screening for HIV (human immunodeficiency virus) Special screening examination for other specified viral diseases Screening for cervical cancer Screening for malignant neoplasm of the cervix H/O tobacco use, presenting hazards to health Personal history of tobacco use, presenting hazards to health Hyperlipidemia, unspecified hyperlipidemia type Insomnia, unspecified type BMI 36.0-36.9,adult Body Mass Index 36.0-36.9, adult Routine medical exam Routine general medical examination at a health care facility Well woman exam with routine gynecological exam Routine gynecological examination [facility] Diagnosis Encounter for screening mammogram for breast cancer [facility] Diagnosis Dental infection- Primary Acute apical periodontitis of pulpal origin [facility] Diagnosis Encounter for screening mammogram for breast cancer [facility] Diagnostic Procedure Only (Routine) - Pending Review Specialty Diagnoses / Procedures Referred By Taylor todd Referred To Contact [facility] Diagnoses Encounter for screening mammogram for breast cancer Procedures MALA SCREENING SCREENING MAMMOGRAPHY BI 2-VIEW BREAST INC CAD Ravindra Price MD [address] [place] [address] [facility] [address] [place] [phone] Referral ID Status Reason Start Date Expiration Date Visits Requested Visits Authorized [id number] Pending Review Auto-Generat ed Referral 06/26/2022 07/26/2023 1 1 [facility] Diagnostic Procedure Only (Routine) - Pending Review Specialty Diagnoses / Procedures Referred By Taylor todd Referred To Contact [facility] Diagnoses Encounter for screening mammogram for breast cancer Procedures MALA SCREENING SCREENING MAMMOGRAPHY BI 2-VIEW BREAST INC Ravindra Quevedo MD [address] [place] [address] [facility] [address] [place] [address] Referral ID Status Reason Start Date Expiration Date Visits Requested Visits Authorized [id number] Pending Review Auto-Generat ed Referral 05/28/2023 06/26/2024 1 1 [facility] for visit Narrative* Diagnostic Procedure Only (Routine) - Closed Specialty Diagnoses / Procedures Referred By Contac t Referred To Contact [facility] Diagnoses Encounter for screening mammogram for breast cancer Procedures MALA SCREENING SCREENING MAMMOGRAPHY BI 2-VIEW BREAST INC Ravindra Quevedo MD [address] [place] [address] [facility] [address] [address] Referral ID Status Reason Start Date Expiration Date V isits Requested Visits Authorized [id number] Closed Auto-Generate d Referral 04/21/2024 09/28/2024 1 1 [facility] Summary Purpose Family History No Family History Records FoundNo Family History Records FoundNo Family History Records FoundNo Family History Records Found Advance Directives No Advanced Directives Records FoundNo Advanced Directives Records FoundNo Advanced Directives Records FoundNo Advanced Directives Records Found Reason for Referral Specialty Diagnoses / Procedures Referred By Contflorida t Referred To Contact Diagnoses Well woman exam with routine gynecological exam Procedures CONSULT TO GAS LINE SERVICER OFFICE/OUTPATIENT [facility] MDM 60-74 MINUTES Thelma Walters, LORETA.DIRECTOR AUDIENCE MARKETING [address] [place] [address] Referral ID Status Reason Start Date Expiration Date Visits Requested Visits Authorized [id number] Authorized PCP Requested Referral Auto-Generate d Referral 08/01/2022 08/01/2023 1 1 Additional Source Comments INFORMATION SOURCE (unrecogn ized section and content) DATE CREATED AUTHOR 07/21/2018 [facility] DATE CREATED AUTHOR AUTHOR'S ORGANIZ ATION 02/08/2021 [facility] ([place]) DATE CREATED AUTHOR AUTHOR'S ORGANIZ ATION 07/28/2021 Deny De Los Santos [facility] DATE CREATED AUTHOR AUTHOR'S ORGANIZ ATION 04/30/2024 [facility] Source Comments (unrecognize d section and content) In the event this informatio n is protected by the Federal Confidentiality of Alcohol and Drug Abuse Patient Records regulations: The Federal rules restrict any use of the information to criminally investigate or prosecute any alcohol or drug abuse patient.[facility] event this information is protected by the Federal Confidentiality of Alcohol and Drug Abuse Patient Records regulations: The Federal rules restrict any use of the information to criminally investigate or prosecute any alcohol or drug abuse patient.[facility] the event this information is protected by the Federal Confidentiality of Alcohol and Drug Abuse Patient Records regulations: The Federal rules restrict any use of the information to criminally investigate or prosecute any alcohol or drug abuse patient.[facility] the event this information is protected by the Federal Confidentiality of Alcohol and Drug Abuse Patient Records regulations: The Federal rules restrict any use of the information to criminally investigate or prosecute any alcohol or drug abuse patient.[facility] the event this information is protected by the Federal Confidentiality of Alcohol and Drug Abuse Patient Records regulations: The Federal rules restrict any use of the information to criminally investigate or prosecute any alcohol or drug abuse patient.[facility] the event this information is protected by the Federal Confidentiality of Alcohol and Drug Abuse Patient Records regulations: The Federal rules restrict any use of the information to criminally investigate or prosecute any alcohol or drug abuse patient.[facility] the event this information is protected by the Federal Confidentiality of Alcohol and Drug Abuse Patient Records regulations: The Federal rules restrict any use of the information to criminally investigate or prosecute any alcohol or drug abuse patient.[facility] the event this information is protected by the Federal Confidentiality of Alcohol and Drug Abuse Patient Records regulations: The Federal rules restrict any use of the information to criminally investigate or prosecute any alcohol or drug abuse patient.[facility] Care Teams (unrecognized sec tion and content) Police Crime Scene Technician Relationship Specialty Start Date End Date Ravindra Price MD [address] [place], [place] [id number] PCP - General Internal Medicine 07/25/21 Police Crime Scene Technician Relationship Specialty Start Date End Date Ravindra Price MD [address] [place], [place] [id number] PCP - General Internal Medicine 07/25/21 Police Crime Scene Technician Relationship Specialty Start Date End Date Ravindra Price MD [address] [place], [place] [id number] PCP - General Internal Medicine 07/25/21 Police Crime Scene Technician Relationship Specialty Start Date End Date Ravindra Price MD [address] [place], [place] [id number] PCP - General Internal Medicine 07/25/21 Police Crime Scene Technician Relationship Specialty Start Date End Date Ravindra Price MD [address] [place], [place] [id number] PCP - General Internal Medicine 07/25/21 Police Crime Scene Technician Relationship Specialty Start Date End Date Ravindra Price MD [address] [place], [place] [id number] PCP - General Internal Medicine 07/25/21 Reason for Visit (unrecogniz ed section and content) Reason Comments Physical Reason Comments Dental Problem Tooth pain x 3 days Reason Onset Date Comments colorectal cancer screening 02/04/2024 FOR RECORDS PERTAINING TO PATIENTS WHO ARE OR HAVE BEEN ENROLLED IN A CHEMICAL DEPENDENCY/SUBSTANCEABUSE PROGRAM, SOME INFORMATION MAY BE OMITTED. This clinical summary was aggregated from multiple sources. Caution should be exercised in using it in the provision of clinical care. This summary normalizes information from multiple sources, and as a consequence, information in this document may materially change the coding, format and clinical context of patient data. In addition, data may be omitted in some cases. CLINICAL DECISIONS SHOULD BE BASED ON THE PRIMARY CLINICAL RECORDS. [facility] [employer] [facility]. provides no warranty or guarantee of the accuracy or completeness of information in this document.
[2025-07-24 14:10] VITALS: BP 146/82; PULSE 101; RESP 16; TEMP 37.1; O2SAT 99
[2025-07-26 13:08] LABS: Lyme Scn Total Ab w/Rflx Positive (Negative)
--- NOTE | 2025-07-27 12:04 | ED.RN ---
CAlled pt with pos lyme results. Pt had already been treated and will follow up closely with PCP.
== END 2025-07-24 14:11 | disposition home or self-care (01) ==
PROVIDERS: Emergency Provider Emergency Medicine; Visit Provider Emergency Medicine
DX: R21 Rash and other nonspecific skin eruption (principal); F17.200 Nicotine dependence, unspecified, uncomplicated; S10.96XA Insect bite of unspecified part of neck, initial encounter; W57.XXXA Bitten or stung by nonvenomous insect and other nonvenomous arthropods, initial encounter
CPT/HCPCS: 86618; 99282